=== PATIENT | male | born 1950 | race Caucasian/White ===

== ENCOUNTER 2021-04-14 09:57 | Emergency (ER) | payer MEDICARE, BC ==
[2021-04-14] MEDS ORDERED: Heparin Sodium 5,000 Units/ML Vial IVPUSH ONE (10:22)
[2021-04-14] MEDS ORDERED: Tenecteplase 50 MG Kit IV ONE (10:28)
--- NOTE | 2021-04-14 10:29 | EDM.PDOC ---
ED HPI GENERAL MEDICAL PROBLEM - General Chief Complaint: Chest Pain Stated Complaint: CHEST PAIN Time Seen by Provider: 04/14/21 10:03 Source of Information: Reports: Patient, Family History Limitations: Reports: No Limitations - History of Present Illness INITIAL COMMENTS - FREE TEXT/NARRATIVE: The patient presents with chest pain, shortness of breath and he is diaphoretic. He just had 3 stents placed in [place] on Saturday. He did not have an IA but he did not do well on a stress test. He was told the LAD was 90% blocked. He is on plavix and aspirin. He did take 2 baby aspirin this moring. He has no fever, chills, or cough. He has a history of HTN, hypercholesterolemia, but no diabetes and he does not smoke. Onset: Sudden Duration: Minutes: Location: Reports: Chest Quality: Reports: Sharp Severity: Moderate Improves with: Reports: None Worsens with: Reports: None Associated Symptoms: Reports: Chest Pain, Shortness of Breath. Denies: Cough, Fever/Chills, Headaches, Nausea/Vomiting Chest Pain Score (Numeric/FACES): 6 - Related Data Allergies Allergy/AdvReac Type Severity Reaction Status Date / Time latex Allergy Other Verified 04/14/21 10:02 ED ROS GENERAL - Review of Systems Review Of Systems: See Below Constitutional: Reports: No Symptoms HEENT: Reports: No Symptoms Respiratory: Reports: Shortness of Breath Cardiovascular: Reports: Chest Pain Endocrine: Reports: No Symptoms GI/Abdominal: Reports: No Symptoms : Reports: No Symptoms Musculoskeletal: Reports: No Symptoms ED EXAM, GENERAL - Physical Exam Exam: See Below Exam Limited By: No Limitations General Appearance: Alert, No Apparent Distress Ears: Normal External Exam Nose: Normal Inspection Head: Atraumatic, Normocephalic Neck: Normal Inspection Respiratory/Chest: No Respiratory Distress, Lungs Clear, Normal Breath Sounds Cardiovascular: Regular Rate, Rhythm, No Edema, No Murmur GI/Abdominal: Soft, Non-Tender, No Organomegaly, No Mass Back Exam: Normal Inspection Extremities: Normal Inspection #1 Interpretation EKG Date: 04/14/21 Time: 10:00 Rhythm: NSR Rate (Beats/Min): 65 [place]: Normal P-Wave: Present QRS: Normal ST-T: Elevated (ST elevation in the lateral leads) QT: Normal Course - Vital Signs Last Recorded V/S: Last Vital Signs Temp 96.9 F 04/14/21 10:00 Pulse 68 04/14/21 10:00 Resp 18 04/14/21 10:00 BP 151/74 H 04/14/21 10:00 Pulse Ox - Orders/Labs/Meds Orders: Active Orders 24 hr Category Date Time Status Chest 1V Frontal [CR] Stat Exams 04/14/21 10:19 Taken BASIC METABOLIC PANEL,BMP [CHEM] Stat Lab 04/14/21 10:35 Received CBC W/O DIFF,HEMOGRAM [HEME] MOTH@0700 Lab 04/17/21 07:00 Ordered CBC W/O DIFF,HEMOGRAM [HEME] MOTH@0700 Lab 04/20/21 07:00 Ordered CBC W/O DIFF,HEMOGRAM [HEME] MOTH@0700 Lab 04/24/21 07:00 Ordered CBC W/O DIFF,HEMOGRAM [HEME] MOTH@0700 Lab 04/27/21 07:00 Ordered CBC W/O DIFF,HEMOGRAM [HEME] MOTH@0700 Lab 05/01/21 07:00 Ordered CBC W/O DIFF,HEMOGRAM [HEME] MOTH@0700 Lab 05/04/21 07:00 Ordered CKMB [CHEM] Stat Lab 04/14/21 10:35 Received CORONAVIRUS COVID-19 SHARON [MOLEC] Stat Lab 04/14/21 10:15 Received INR,PT,PROTHROMBIN TIME [COAG] Stat Lab 04/14/21 10:35 Received PTT,PARTIAL THROMBOPLSTIN TIME [COAG] Stat Lab 04/14/21 10:35 Received TROPONIN I [CHEM] Stat Lab 04/14/21 10:35 Received Aspirin Med 04/15/21 10:41 Once 162 mg PO ONETIME ONE Heparin Sodium/D5W [Heparin 25,000 Units in D5W 500 ML] Med 04/14/21 10:30 Active 25,000 units in 500 ml IV TITRATE Nitroglycerin/D5W [Nitroglycerin 25 MG/D5W 250 ML] Med 04/14/21 10:30 Active 25 mg in 250 ml IV TITRATE EKG 12 Lead [EK] Stat Ther 04/14/21 10:21 Ordered Medication Orders Aspirin (Aspirin 81 Mg Tab.Chew) 162 mg PO ONETIME ONE Stop: 04/15/21 10:42 Nitroglycerin/Dextrose (Nitroglycerin 25 Mg/D5w 250 Ml) 25 mg in 250 mls @ 3 mls/hr IV TITRATE DHARMESH; Protocol Last Admin: 04/14/21 10:44 Dose: 3 mls/hr, 3 mls/hr Documented by: MATTEO Heparin Sodium/Dextrose (Heparin 25,000 Units In D5w 500 Ml) 25,000 units in 500 mls @ 18.507 mls/hr IV TITRATE DHARMESH; Protocol Last Admin: 04/14/21 10:37 Dose: 12 units/kg/hr, 18.507 mls/hr Documented by: MATTEO Cosigned by: POORNIMA Labs: Laboratory Tests 04/14/21 Range/Units 10:35 WBC 9.31 H (4.23-9.07) K/mm3 RBC 4.21 L (4.63-6.08) M/mm3 Hgb 13.2 L (13.7-17.5) gm/dl Hct 39.3 L (40.1-51.0) % MCV 93.3 H (79.0-92.2) fl MCH 31.4 (25.7-32.2) pg MCHC 33.6 (32.2-35.5) g/dl RDW Std Deviation 43.0 (35.1-43.9) fL Plt Count 210 (163-337) K/mm3 MPV 9.1 L (9.4-12.3) fl Neut % (Auto) 71.1 H (34.0-67.9) % Lymph % (Auto) 17.9 L (21.8-53.1) % [place] % (Auto) 7.6 (5.3-12.2) % Eos % (Auto) 2.9 (0.8-7.0) Baso % (Auto) 0.3 (0.1-1.2) % Neut # (Auto) 6.61 H (1.78-5.38) K/mm3 Lymph # (Auto) 1.67 (1.32-3.57) K/mm3 [place] # (Auto) 0.71 (0.30-0.82) K/mm3 Eos # (Auto) 0.27 (0.04-0.54) K/mm3 Baso # (Auto) 0.03 (0.01-0.08) K/mm3 Meds: Medications Generic Name Dose Route Start Last Admin Trade Name Cristina PRN Reason Stop Dose Admin Aspirin 162 mg 04/15/21 10:41 Aspirin 81 Mg Tab.Chew PO 04/15/21 10:42 ONETIME ONE Nitroglycerin/Dextrose 25 mg in 250 mls @ 3 mls/hr 04/14/21 10:30 04/14/21 10:44 Nitroglycerin 25 Mg/D5w 250 Ml IV 3 mls/hr TITRATE DHARMESH 3 mls/hr Administration Protocol Heparin Sodium/Dextrose 25,000 units in 500 mls @ 18.507 mls/hr 04/14/21 10:30 04/14/21 10:37 Heparin 25,000 Units In D5w 500 Ml IV 12 units/kg/hr TITRATE DHARMESH 18.507 mls/hr Administration Protocol 12 UNITS/KG/HR Discontinued Medications Generic Name Dose Route Start Last Admin Trade Name Cristina PRN Reason Stop Dose Admin Heparin Sodium (Porcine) 4,620 units 04/14/21 10:22 04/14/21 10:36 Heparin Sodium 5,000 Units/Ml Vial IVPUSH 04/14/21 10:23 4,620 units ONETIME ONE Administration Tenecteplase 50 mg 04/14/21 10:28 04/14/21 10:36 Tenecteplase 50 Mg Kit IV 04/14/21 10:29 50 mg ONETIME ONE Administration Protocol Tenecteplase Confirm 04/14/21 10:30 04/14/21 10:43 Tenecteplase 50 Mg Kit Administered 04/14/21 10:31 Not Given Dose 50 mg .[address] .[facility] ONE - Re-Assessments/Exams Free Text/Narrative Re-Assessment/Exam: 04/14/21 10:50 His EKG shows a NSR with ST elevations in the lateral leads. It appears he is having a STEMI. I ordered an IV saline lock, aspirin 162mg PO. Nitro drip, heparin bolus, and drip and TNKase per weight based protocol. I also ordered a CXR and labs. His CXR looks good. I called [facility] and they accepted the patient. He will go by ambulance. 04/14/21 10:53 I was busy intubating an overdose patient. I did not get in the room quickly enough and that did delay the TnKase being given within 1/2 hour. Departure - Departure Time of Disposition: 10:55 Disposition: DC/Tfer to Acute Hospital 02 Reason for Transfer *Q: Primary PCI Indicated Condition: Serious Clinical Impression: STEMI (ST elevation myocardial infarction) Qualifiers: Involved coronary artery: LAD coronary artery Qualified Code(s): I21.02 - ST elevation (STEMI) myocardial infarction involving left anterior descending coronary artery Forms: ED Department Discharge Sepsis Event Note (ED) - Focused Exam Vital Signs: Vital Signs Temp Pulse Resp BP 04/14/21 10:00 96.9 F 68 18 151/74 H - My Orders Last 24 Hours: My Active Orders 04/14/21 10:15 CORONAVIRUS COVID-19 SHARON [MOLEC] Stat 04/14/21 10:19 Chest 1V Frontal [CR] Stat 04/14/21 10:21 EKG 12 Lead [EK] Stat 04/14/21 10:30 Heparin Sodium/D5W [Heparin 25,000 Units in D5W 500 ML] 25,000 units in 500 ml IV TITRATE Nitroglycerin/D5W [Nitroglycerin 25 MG/D5W 250 ML] 25 mg in 250 ml IV TITRATE 04/14/21 10:35 BASIC METABOLIC PANEL,BMP [CHEM] Stat CKMB [CHEM] Stat INR,PT,PROTHROMBIN TIME [COAG] Stat PTT,PARTIAL THROMBOPLSTIN TIME [COAG] Stat TROPONIN I [CHEM] Stat 04/15/21 10:41 Aspirin 162 mg PO ONETIME ONE 04/17/21 07:00 CBC W/O DIFF,HEMOGRAM [HEME] MOTH@0700 04/20/21 07:00 CBC W/O DIFF,HEMOGRAM [HEME] MOTH@69904/24/21 07:00 CBC W/O DIFF,HEMOGRAM [HEME] MOTH@0700 04/27/21 07:00 CBC W/O DIFF,HEMOGRAM [HEME] MOTH@0700 05/01/21 07:00 CBC W/O DIFF,HEMOGRAM [HEME] MOTH@0700 05/04/21 07:00 CBC W/O DIFF,HEMOGRAM [HEME] MOTH@0700 - Assessment/Plan Last 24 Hours: My Active Orders 04/14/21 10:15 CORONAVIRUS COVID-19 SHARON [MOLEC] Stat 04/14/21 10:19 Chest 1V Frontal [CR] Stat 04/14/21 10:21 EKG 12 Lead [EK] Stat 04/14/21 10:30 Heparin Sodium/D5W [Heparin 25,000 Units in D5W 500 ML] 25,000 units in 500 ml IV TITRATE Nitroglycerin/D5W [Nitroglycerin 25 MG/D5W 250 ML] 25 mg in 250 ml IV TITRATE 04/14/21 10:35 BASIC METABOLIC PANEL,BMP [CHEM] Stat CKMB [CHEM] Stat INR,PT,PROTHROMBIN TIME [COAG] Stat PTT,PARTIAL THROMBOPLSTIN TIME [COAG] Stat TROPONIN I [CHEM] Stat 04/15/21 10:41 Aspirin 162 mg PO ONETIME ONE 04/17/21 07:00 CBC W/O DIFF,HEMOGRAM [HEME] MOTH@69904/20/21 07:00 CBC W/O DIFF,HEMOGRAM [HEME] MOTH@69904/24/21 07:00 CBC W/O DIFF,HEMOGRAM [HEME] MOTH@69904/27/21 07:00 CBC W/O DIFF,HEMOGRAM [HEME] MOTH@69905/01/21 07:00 CBC W/O DIFF,HEMOGRAM [HEME] MOTH@69905/04/21 07:00 CBC W/O DIFF,HEMOGRAM [HEME] MOTH@699
[2021-04-14] MEDS ORDERED: Heparin Sodium/D5W 25,000 UNITS/500 ML BAG IV SCH (10:30)
[2021-04-14] MEDS ORDERED: Tenecteplase 50 MG Kit ONE (10:30)
[2021-04-14] MEDS ORDERED: Nitroglycerin/D5W 25 MG/250 ML BOTTLE IV SCH (10:30)
[2021-04-14] MEDS ORDERED: Aspirin 81 MG Tab.Chew ONE (10:53)
--- NOTE | 2021-04-14 10:56 | CR ---
Chest: Portable view of the chest was obtained. Comparison: No prior chest imaging is available. Heart size and mediastinum are within normal limits. Lungs appear to be clear with no acute parenchymal change being seen. Bony structures show slight scoliosis within the spine. Impression: 1. Nothing acute is seen on portable chest x-ray. Diagnostic code #2
[2021-04-14] MEDS ORDERED: Morphine 2 MG/ML SYRINGE ONE (10:59)
[2021-04-14] MEDS ORDERED: Morphine 2 MG/ML SYRINGE IVPUSH ONE (11:06)
[2021-04-15] MEDS ORDERED: Aspirin 81 MG Tab.Chew PO ONE (10:41)
== END 2021-04-14 11:19 ==
LOC: JD.ED 09:57
DX: I21.02 ST elevation (STEMI) myocardial infarction involving left anterior descending coronary artery (principal); Z91.040 Latex allergy status
CPT/HCPCS: 36415; 71045; 80048; 82553; 84484; 85025; 85610; 85730; 92977; 93005; 96365; 96368; 96375; 99285; A9270; J1644; J2270; J3101; J3490; U0002; 93010; 99284